=== PATIENT | female | born 1970 | race American Indian/Alaskan Native ===

== ENCOUNTER 2017-06-27 16:20 | Emergency (ER) | payer MEDICAID ==
--- NOTE | 2017-06-27 21:39 | Emergency Department Report ---
ED General Adult HPI - General Chief complaint: Eye Problems Stated complaint: UTI/COUGH/EYE Time Seen by Provider: 06/27/17 21:37 Source: patient Mode of arrival: Ambulatory Limitations: No Limitations - History of Present Illness Initial comments: Patient here multiple complaints to include bilateral eye irritation that started in her left eye and now to her right eye. She thinks she got pink eye from work. She is also complaining of cough, body ache and sore throat that started 3 days ago. She is complaining of urinary frequency that started yesterday. She is also complaining that she needs refill on her blood pressure medication and her blood pressure in triage was 176/101 and says she took her last amlodipine today. She denies any chest pain, shortness of breath, dizziness, nausea and/or vomiting, back pain with elevated blood pressure. She says she has a headache that is 8 out of 10 that comes and goes. Located to the front of her head. She is also complaining that she has eye pain and triage area but patient said that her eyes are itchy and burning in but does not have any pain. Denies any foreign body sensation in her eyes. Immunizations up-to-date. Denies any urinary burning. Denies any abdominal pain. Patient says she doesn't have a primary care physician but she goes through [facility] and she had an appointment last month that she was on her. So she has to reschedule the appointment. She denies any fever or chills. Denies any wheezing . MD Complaint: eye irritation, cough body ache and sore throat and urinary frequency Onset/Timin -: days(s) Location: head Radiation: non-radiation Severity scale (0 -10): 8 Quality: aching Consistency: intermittent Improves with: rest Worsens with: none Associated Symptoms: cough, headaches, other (urinary frequency and eye irritation). denies: confusion, chest pain, diaphoresis, fever/chills, loss of appetite, malaise, nausea/vomiting, rash, seizure, shortness of breath, syncope , weakness Treatments Prior to Arrival: none - Related Data Home Medications Medication Instructions Recorded Confirmed Last Taken amLODIPine [Norvasc] 10 mg PO DAILY 06/27/17 06/27/17 06/27/17 Previous Rx's Medication Instructions Recorded Last Taken Type Cetirizine HCl [ZyrTEC] 10 mg PO QAM 14 Days #14 capsule 06/27/17 Unknown Rx Fluticasone [Flonase] 1 spray NS QDAY 14 Days #1 bottle 06/27/17 Unknown Rx Gentamicin 0.3% Ophth Soln 2 drops OP Q8H 7 Days #1 bottle 06/27/17 Unknown Rx Sulfamethoxazole/Trimethoprim 1 each PO BID 7 Days #14 tablet 06/27/17 Unknown Rx [Bactrim DS TAB] amLODIPine [Norvasc] 10 mg PO DAILY 30 Days #30 tab 06/27/17 Unknown Rx Allergies Allergy/AdvReac Type Severity Reaction Status Date / Time No Known Allergies Allergy Unverified 06/27/17 17:00 ED Review of Systems ROS: Stated complaint: UTI/COUGH/EYE Other details as noted in HPI Comment: All other systems reviewed and negative Constitutional: no symptoms reported Eyes: eye discharge (and redness that started in her left eye and now in right eye) ENT: throat pain, congestion. denies: ear pain, dental pain, hearing loss Respiratory: cough. denies: orthopnea, shortness of breath, SOB with exertion, SOB at rest, stridor, wheezing Cardiovascular: denies: chest pain, palpitations, dyspnea on exertion, orthopnea , edema, syncope, paroxysmal nocturnal dyspnea Gastrointestinal: denies: abdominal pain, nausea, vomiting, diarrhea Genitourinary: frequency. denies: urgency, dysuria, hematuria, discharge, abnormal menses Musculoskeletal: myalgia. denies: back pain, joint swelling, arthralgia Skin: denies: rash Neurological: headache. denies: weakness, numbness, paresthesias, confusion, abnormal gait, vertigo ED Past Medical Hx - Past Medical History Previous Medical History?: Yes Hx Hypertension: Yes - Surgical History Past Surgical History?: Yes Additional Surgical History: C SECT - Family History Family history: hypertension - Social History Smoking Status: Current Every Day Smoker Substance Use Type: Alcohol - Medications Home Medications: Home Medications Medication Instructions Recorded Confirmed Last Taken Type Cetirizine HCl [ZyrTEC] 10 mg PO QAM 14 Days #14 capsule 06/27/17 Unknown Rx Fluticasone [Flonase] 1 spray NS QDAY 14 Days #1 bottle 06/27/17 Unknown Rx Gentamicin 0.3% Ophth Soln 2 drops OP Q8H 7 Days #1 bottle 06/27/17 Unknown Rx Sulfamethoxazole/Trimethoprim 1 each PO BID 7 Days #14 tablet 06/27/17 Unknown Rx [Bactrim DS TAB] amLODIPine [Norvasc] 10 mg PO DAILY 06/27/17 06/27/17 06/27/17 History amLODIPine [Norvasc] 10 mg PO DAILY 30 Days #30 tab 06/27/17 Unknown Rx ED Physical Exam - General Limitations: No Limitations General appearance: alert, in no apparent distress - Head Head exam: Present: atraumatic, normocephalic, normal inspection, other (normal exam) - Eye Eye exam: Present: normal appearance, PERRL, EOMI, conjunctival injection ( bilateral). Absent: scleral icterus, nystagmus, periorbital swelling, periorbital tenderness Pupils: Present: normal accommodation - Expanded Eye Exam Expanded Eyelids: Normal Inspection: Right (bilateral) Pupils: Regular, Round: Bilateral, Reactive: Bilateral Sclera/Conjunctival: Injection: Bilateral (with crusting) Anterior chamber: Normal Inspection: Bilateral Posterior chamber: Normal Inspection: Bilateral Visual acuity (R) = 20/: 25 (20/25 both eyes) Visual acuity (L) = 20/: 25 With correction: No (patient do) - ENT ENT exam: Present: normal orophraynx, mucous membranes moist, TM's normal bilaterally (bilateral TM congested without any erythema), normal external ear exam, other (lateral nasal mucosa congested, erythema and swollen. Bilateral maxillary and frontal sinuses nontender to palpate). Absent: normal exam - Neck Neck exam: Present: normal inspection, full ROM, other (no C-spine tenderness). Absent: tenderness, meningismus, lymphadenopathy - Respiratory Respiratory exam: Present: normal lung sounds bilaterally. Absent: respiratory distress, chest wall tenderness - Cardiovascular Cardiovascular Exam: Present: regular rate, normal rhythm, normal heart sounds - GI/Abdominal GI/Abdominal exam: Present: soft, normal bowel sounds. Absent: distended, tenderness, guarding, rebound, rigid - Extremities Exam Extremities exam: Present: normal inspection, full ROM, normal capillary refill , other (no clubbing, cyanosis or edema. +2 pulses to all extremities and no neurovascular compromise). Absent: tenderness, pedal edema, joint swelling, calf tenderness - Neurological Exam Neurological exam: Present: alert, oriented X3, normal gait, reflexes normal. Absent: motor sensory deficit - Psychiatric Psychiatric exam: Present: normal affect, normal mood - Skin Skin exam: Present: warm, dry, intact, normal color. Absent: rash ED Course Vital Signs 06/27/17 06/27/17 06/27/17 17:00 21:47 21:54 Temperature 99.3 F Pulse Rate 82 77 Respiratory 18 18 Rate Blood Pressure 176/101 156/112 Blood Pressure 156/112 [Right] O2 Sat by Pulse 100 Oximetry 06/27/17 23:14 Temperature Pulse Rate Respiratory Rate Blood Pressure Blood Pressure 130/90 [Right] O2 Sat by Pulse Oximetry - Reevaluation(s) Reevaluation #1: 06/27/17 23:18 Patient given clonidine 0.2 mg and emergency room for elevated blood pressure of 176/101 her blood pressure is now normalized. ED Medical Decision Making - Lab Data Lab Results 06/27/17 Range/Units 21:00 Urine Color Yellow (Yellow) Urine Turbidity Clear (Clear) Urine pH 6.0 (5.0-7.0) Ur Specific [place] 1.010 (1.003-1.030) Urine Protein <15 mg/dl (Negative) mg/dL Urine Glucose (UA) Neg (Negative) mg/dL Urine Ketones Neg (Negative) mg/dL Urine Blood Mod (Negative) Urine Nitrite Neg (Negative) Ur Reducing Substances Not Reportable Urine Bilirubin Neg (Negative) Urine Ictotest Not Reportable Urine Urobilinogen < 2.0 (<2.0) mg/dL Ur Leukocyte Esterase Tr (Negative) Urine WBC (Auto) 3.0 (0.0-6.0) /HPF Urine RBC (Auto) 3.0 (0.0-6.0) /HPF U Epithel Cells (Auto) 2.0 (0-13.0) /HPF Urine Bacteria (Auto) 1+ (Negative) /HPF Urine HCG, Qual Negative (Negative) Urine culture pending - Medical Decision Making ED course: Patient here with multiple complaints. She is found to have elevated blood pressure and was given clonidine 0.2 mg and her blood pressures now stabilized. She will be having a refill for amlodipine. She also found to have urinary tract infection and will be started on Bactrim DS. Patient with cough and, body ache and sore throat and found to have upper respiratory tract infection with cough and congestion and sinusitis. Will be treated with Zyrtec and Flonase. She also has bilateral conjunctivitis and will be treated with gentamicin ophthalmic drop. I discussed patient with diagnosis and treatment plan and she voiced understanding and I discussed with her that she needs to go to [facility] and she needs to reschedule her appointment and also to follow up at [facility] for primary care visit regarding her blood pressure. Patient discharged home in stable condition with prescription for amlodipine, Flonase, Zyrtec, gentamicin ophthalmic and Bactrim DS Critical care attestation.: If time is entered above; I have spent that time in minutes in the direct care of this critically ill patient, excluding procedure time. ED Disposition Clinical Impression: Acute cystitis with hematuria, Urinary frequency, Upper respiratory infection with cough and congestion, Elevated blood pressure reading with diagnosis of hypertension Conjunctivitis Qualifiers: Conjunctivitis type: unspecified Laterality: bilateral Qualified Code(s): H10.9 - Unspecified conjunctivitis Sinusitis Qualifiers: Sinusitis location: unspecified location Chronicity: acute Recurrence: not specified as recurrent Qualified Code(s): J01.90 - Acute sinusitis, unspecified Disposition: DC- TO HOME OR SELFCARE Is pt being admited?: No Does the pt Need Aspirin: No Condition: Stable Instructions: Upper Respiratory Infection (ED), Acute Cough (ED), Conjunctivitis (ED), Sinusitis (ED), Hypertension (ED), DASH Eating Plan (ED) Additional Instructions: Take medication as prescribed Follow-up with [facility] regarding in Take a blood pressure and keep a log and take to primary care visit with you Please see discharge instruction and conjunctivitis Please reschedule appointment with the [facility] for follow-up appointment. Prescriptions: amLODIPine [Norvasc] 10 mg PO DAILY 30 Days #30 tab Cetirizine HCl [ZyrTEC] 10 mg PO QAM 14 Days #14 capsule Fluticasone [Flonase] 1 spray NS QDAY 14 Days #1 bottle Gentamicin 0.3% Ophth Soln 2 drops OP Q8H 7 Days #1 bottle Sulfamethoxazole/Trimethoprim [Bactrim DS TAB] 1 each PO BID 7 Days #14 tablet Referrals: [facility] [Outside] - 07/01/17 Forms: Work/School Release Form(ED)
[2017-06-27 21:46] LABS: HCG Qualitative,Urine Negative (Negative)
[2017-06-27 21:48] LABS: Bacteria,Urine 1+ /HPF (Negative); Bilirubin,Urine NEG (Negative); Blood,Urine MOD (Negative); Color,Urine Yellow (Yellow); Protein,Urine <15 mg/dL mg/dL (Negative); Urobilinogen,Urine < 2.0 mg/dL (<2.0)
[2017-06-27] MEDS ORDERED: CATAPRES ONE (21:49)
[2017-06-27] MEDS ORDERED: CATAPRES PO ONE (21:53)
[2017-06-27 23:15] VITALS: BP 130/90
== END 2017-06-27 23:53 | disposition home or self-care (01) ==
LOC: ED 16:20
DX: N30.01 Acute cystitis with hematuria (principal); R35.0 Frequency of micturition; J06.9 Acute upper respiratory infection, unspecified; I10 Essential (primary) hypertension; H10.9 Unspecified conjunctivitis; J01.90 Acute sinusitis, unspecified
CPT/HCPCS: 81001; 81025; 87086